=== PATIENT | male | born 1965 ===

== ENCOUNTER → 2016-09-28 | Outpatient (CLI) | payer BC ==
[2016-09-28 17:54] LABS: ALT/SGPT 53 U/L (12-78); AST/SGOT 35 U/L (15-37); BLOOD UREA NITROGEN 16 mg/dl (7-18); BUN/CREATININE RATIO 15.7 (10-20); CALCIUM 8.4 mg/dl (8.5-10.1); CARBON DIOXIDE 28 mmol/L (21-32); CHLORIDE 107 mmol/L (98-107); GLUCOSE 97 mg/dl (70-99); SODIUM 141 mmol/L (136-145)
[2016-09-28 17:56] LABS: ALB/GLOB RATIO 0.8 (0.9-2); ALKALINE PHOSPHATASE 73 U/L (45-117); CHOLESTEROL 199 mg/dl (0-200); HDL CHOLESTEROL 50 mg/dl; LDL CHOLESTEROL CALCULATED 126 mg/dl; TRIGLYCERIDES 115 mg/dl (0-150); VERY LOW DENSITY LIPOPROT CALC 23 mg/dl
[2016-09-29 05:46] LABS: ESTIMATED AVERAGE GLUCOSE 143 mg/dl; HA1C FLAG Normal (Normal)
== END | disposition home or self-care (01) ==
LOC: C.LABMFLN 11:48
PROVIDERS: ATTEND Family Medicine
DX: E78.5 Hyperlipidemia, unspecified (principal); R73.03 Prediabetes